=== PATIENT | male | born 1975 | race Caucasian/White ===

== ENCOUNTER → 2018-04-27 | Outpatient (CLI) | payer OTHER ==
[~2018-04-27] MED LIST: ACETAMINOPHEN-1 EAC1 PO; CO Q-10100 MG PO; ELIQUIS5 M1 PO; LIPITOR10 MG PO; XARELTO15 MG PO
[2018-04-27 08:06] LABS: ABSOLUTE BASOPHILS 0.1 thou/uL (0.0-0.2); ABSOLUTE EOSINOPHILS 0.1 thou/uL (0.0-0.7); ABSOLUTE LYMPHOCYTES 2.3 thou/uL (0.8-5.3); ABSOLUTE MONOCYTES 0.8 thou/uL (0.0-1.2); ABSOLUTE NEUTROPHILS 3.4 thou/uL (1.6-8.1); BASOPHILS 1.2 %; EOSINOPHILS 1.3 %; HEMOGLOBIN 17.3 gm/dL (14.0-18.0); LYMPHOCYTES 34.9 %; MCH 30.3 pg (26.0-34.0); MCHC 35.4 g/dL (28.0-37.0); MCV 85.7 fL (80.0-100.0); MONOCYTES 11.4 %; MPV 7.3 fl. (7.2-11.1); NUCLEATED RBCS 0 /100WBC; PLATELET COUNT* 210 thou/uL (150-400); POLYS 51.2 %; RBC 5.71 mil/uL (4.50-6.00); RDW-CV 12.6 % (10.5-14.5); WBC 6.7 thou/uL (4.0-11.0)
[2018-04-27 08:13] LABS: CALCIUM 9.4 mg/dL (8.5-10.1); POTASSIUM 3.8 mmol/L (3.5-5.1)
[2018-04-27 08:17] LABS: ALBUMIN 4.3 g/dL (3.4-5.0); TOTAL BILIRUBIN 0.9 mg/dL (<0.1-1.0); TOTAL PROTEIN 7.5 g/dL (6.4-8.2)
[2018-04-27 09:09] LABS: ESR (SEDRATE) 3 mm/hr (0-15)
== END ==
LOC: M.ULTRA 07:27
PROVIDERS: Internal Medicine Gastroenterology
DX: R10.12 Left upper quadrant pain (principal); R10.13 Epigastric pain

== ENCOUNTER → 2018-05-12 | Outpatient (CLI) | payer OTHER | LOC: M.NUC 12:14 | DX: R10.11 Right upper quadrant pain (principal) ==

== ENCOUNTER → 2018-06-25 | Outpatient (CLI) | payer OTHER | LOC: M.ULTRA 07:21 | DX: I77.4 Celiac artery compression syndrome (principal) ==

== ENCOUNTER 2018-11-09 05:08 | Emergency (ER) | payer OTHER | END 2018-11-09 06:02 | disposition home or self-care (01) | LOC: M.ERS 05:08 | DX: M54.5 Low back pain (principal); E78.00 Pure hypercholesterolemia, unspecified; F10.10 Alcohol abuse, uncomplicated; Z79.899 Other long term (current) drug therapy ==

== ENCOUNTER 2019-11-28 18:30 | Emergency (ER) | payer OTHER ==
[~2019-11-28] VITALS: Ht 182.9 cm; Wt 99.8 kg
[~2019-11-28 18:30] MED LIST changes: +IBUPROFEN 800800 MG PO; +NORCO 5-325 TA1 EAC1 PO; +PREDNISONE50 MG PO; +ROBAXIN500 MG PO
[2019-11-28] MEDS ORDERED: MELOXICAM15 MG PO ×2 (18:50→18:51)
[2019-11-28] MEDS ORDERED: [UNRECOGNIZED DRUG - CODE] PO ×2 (18:50→18:51)
[2019-11-28 19:49] LABS: ABSOLUTE EOSINOPHILS 0.1 thou/uL (0.0-0.7); ABSOLUTE LYMPHOCYTES 2.6 thou/uL (0.8-5.3); ABSOLUTE MONOCYTES 0.6 thou/uL (0.0-1.2); ABSOLUTE NEUTROPHILS 2.8 thou/uL (1.6-8.1); BASOPHILS 0.6 %; EOSINOPHILS 1.4 %; HEMATOCRIT 46.7 % (42.0-52.0); HEMOGLOBIN 16.6 gm/dL (14.0-18.0); LYMPHOCYTES 42.9 %; MCH 30.4 pg (26.0-34.0); MCHC 35.6 g/dL (28.0-37.0); MCV 85.4 fL (80.0-100.0); MPV 7.3 fl. (7.2-11.1); NUCLEATED RBCS 0 /100WBC; PLATELET COUNT* 209 thou/uL (150-400); POLYS 46.1 %; RBC 5.47 mil/uL (4.50-6.00); RDW-CV 12.8 % (10.5-14.5); WBC 6.2 thou/uL (4.0-11.0)
[2019-11-28 19:59] LABS: ANION GAP 8 mmol/L (7-16); BUN 17 mg/dL (7-18); CALCIUM 8.8 mg/dL (8.5-10.1); CHLORIDE 104 mmol/L (98-107); CO2 29 mmol/L (21-32); CREATININE 1.1 mg/dL (0.6-1.3); GLUCOSE 122 mg/dL (70-99); POTASSIUM 3.6 mmol/L (3.5-5.1); SODIUM 141 mmol/L (136-145)
[2019-11-28 20:05] LABS: APTT 26.8 Seconds (25.0-31.3); INR 1.1; PROTIME 11.1 Seconds (9.20-11.50)
[2019-11-28 20:10] LABS: ALBUMIN 4.5 g/dL (3.4-5.0); ALKALINE PHOSPHATASE 70 U/L (46-116); NT-PRO BRAIN NAT PEPTIDE < 5 pg/mL (<300); SGOT 23 U/L (15-37); SGPT 39 U/L (30-65); TOTAL BILIRUBIN 0.9 mg/dL (<0.1-1.0); TOTAL PROTEIN 7.2 g/dL (6.4-8.2)
[2019-11-28 23:21] VITALS: BP 106/87
--- NOTE | 2019-11-29 09:42 | EKG ---
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 : 1975 Requested By: Leola Chadwick Order Number: [id number] MD: Alan Obando Measurements Intervals [place] Rate: 79 P: 68 WI: 134 QRS: -11 QRSD: 99 T: 51 QT: 367 QTc: 421 Interpretive Statements Sinus rhythm RSR' in V1 or V2, probably normal variant Baseline wander in lead(s) II,III,aVR,aVL,aVF,V6 No previous ECG available for comparison Electronically Signed On 11-29-2019 9:42:36 CDT by Alan Obando [email or web address] <ELECTRONICALLY SIGNED> By: Alan Obando MD, [facility] 11/29/1942 36 36 Alan Obando MD, [facility] /EPI
== END 2019-11-28 23:22 | disposition home or self-care (01) ==
LOC: M.ERS 18:30
PROVIDERS: Nurse Practitioner Family
DX: D72.0 Genetic anomalies of leukocytes (principal); E78.00 Pure hypercholesterolemia, unspecified; Z88.6 Allergy status to analgesic agent

== ENCOUNTER → 2020-05-16 | Outpatient (CLI) | payer OTHER ==
[~2020-05-16] MED LIST changes: +MELOXICAM15 MG PO; +[UNRECOGNIZED DRUG - CODE] PO
== END ==
LOC: M.ULTRA 07:52
PROVIDERS: ATTEND Family Medicine
DX: I77.4 Celiac artery compression syndrome (principal)